=== PATIENT | female | born 1980 | race African-American/Black ===

== ENCOUNTER 2024-07-29 22:06 | Emergency (ER) | payer MEDICAID, OTHER ==
[~2024-07-29] VITALS: Ht 167.6 cm; Wt 90.0 kg
[2024-07-29 22:08] VITALS: O2SAT 96
[2024-07-29 22:22] VITALS: BP 147/84; PULSE 104; RESP 18; TEMP 36.9; O2SAT 96
[2024-07-29 23:28] LABS: BASOPHILS % 0.9 % (0.0-2.0); EOSINOPHILS % 0.9 % (0.0-5.0); HEMATOCRIT. 35.3 % (36.0-48.0); HEMOGLOBIN. 11.4 g/dL (12.0-16.0); LYMPHOCYTES % 26.8 % (20.0-50.0); MEAN CORPUSCULAR HEMOGLOBIN 26.5 pg (28.0-32.0); MEAN CORPUSCULAR HGB CONC 32.4 g/dL (31.0-37.0); MEAN CORPUSCULAR VOLUME 81.9 fL (81.0-99.0); MEAN PLATELET VOLUME 8.2 fl (7.4-10.4); MONOCYTES % 6.7 % (2.0-8.0); NEUTROPHILS % 64.7 % (40.0-76.0); PLATELET 349 x1000/uL (130-400); RED CELL DISTRIBUTION WIDTH 13.6 % (11.6-14.6); WHITE BLOOD COUNT 9.2 x1000/uL (4.5-11.0)
[2024-07-29] MEDS: SODIUM CHLORIDE 0.9% 1,000 ML IV ONE (23:28)
[2024-07-29 23:39] LABS: CHLORIDE 110 mEq/L (98-107); POTASSIUM 3.9 mEq/L (3.5-5.1); SODIUM 142 mEq/L (136-145)
[2024-07-29 23:40] LABS: CALCIUM 9.2 mg/dL (8.7-10.4); CARBON DIOXIDE 19 mEq/L (21-32)
[2024-07-29] MEDS: LEVETIRACETAM 1000MG PREMIX 100 ML IV ONE (23:40)
[2024-07-29 23:45] LABS: CREATININE 1.1 mg/dL (0.6-1.0); GLUCOSE 106 mg/dL (70-105); UREA NITROGEN BLOOD 9 mg/dL (9-23)
[2024-07-29 23:49] LABS: HCG SCREEN NEGATIVE
[2024-07-30 00:19] LABS: CARBAMAZEPINE < 0.4 ug/mL (4-12); PHENOBARBITAL < 3.0 ug/mL (15.0-40.0); PHENYTOIN < 2.0 ug/mL (10-20); VALPROIC ACID < 3.0 ug/mL (50-100)
== END 2024-07-30 01:19 | disposition home or self-care (01) ==
LOC: ER 22:06
DX: G40.909 Epilepsy, unspecified, not intractable, without status epilepticus (principal)
CPT/HCPCS: 80048; 80156; 80185; 84703; 80184; 80165; 85025; 36415; 96365; 99284; J1953; J7030; Z7610 ×2; A4606